=== PATIENT | female | born 1965 | race African-American/Black ===

== ENCOUNTER 2017-06-22 00:51 | Emergency (ER) | payer OTHER ==
[~2017-06-22] VITALS: Ht 160 cm; Wt 84.1 kg
[~2017-06-22 00:51] MED LIST: LISI10TA PO; LORA10TA7 PO; NAPR-58 PO; PRED10TA3 PO; PRED5 PO
[2017-06-22] MEDS ORDERED: CLINDAMYCIN PHOS 150 MG/ML 4 ML VIAL IM ONE (04:30)
[2017-06-22 04:35] VITALS: BP 131/68
== END 2017-06-22 04:57 | disposition home or self-care (01) ==
LOC: EMS 00:56
DX: L73.9 Follicular disorder, unspecified (principal); I10 Essential (primary) hypertension; Z88.6 Allergy status to analgesic agent
CPT/HCPCS: 96372; 99283; S0077

== ENCOUNTER 2018-04-24 05:31 | Emergency (ER) | payer SELFPAY ==
[~2018-04-24] VITALS: Ht 160 cm; Wt 86.4 kg
[~2018-04-24 05:31] MED LIST changes: -LORA10TA7 PO; -NAPR-58 PO; -PRED10TA3 PO
[2018-04-24] MEDS ORDERED: FERR-89 PO (05:40)
[2018-04-24] MEDS ORDERED: MULT1TAB70 PO (05:40)
[2018-04-24 06:17] VITALS: BP 132/89
[2018-04-24] MEDS ORDERED: TraMADol HCL 50 MG TABLET PO ONE (06:30)
== END 2018-04-24 09:47 | disposition home or self-care (01) ==
LOC: EMS 05:32
DX: S13.4XXA Sprain of ligaments of cervical spine, initial encounter (principal); I10 Essential (primary) hypertension; Z88.6 Allergy status to analgesic agent; V43.52XA Car driver injured in collision with other type car in traffic accident, initial encounter; Y93.89 Activity, other specified; Y92.89 Other specified places as the place of occurrence of the external cause; Y99.8 Other external cause status
CPT/HCPCS: 72040; 99284

== ENCOUNTER 2018-11-05 05:48 | Emergency (ER) | payer OTHER ==
[~2018-11-05] VITALS: Ht 160 cm; Wt 85.0 kg
[~2018-11-05 05:48] MED LIST changes: +FERR-89 PO; +MULT1TAB70 PO
[2018-11-05] MEDS ORDERED: CORT25 PO (06:03)
[2018-11-05] MEDS ORDERED: FLUORESCEIN SODIUM 1 MG STRIP ONE (06:22)
[2018-11-05] MEDS ORDERED: PROPARACAINE HCL 0.5% 15 ML OPHTHALMIC SOLUTION OD ONE (06:30)
[2018-11-05] MEDS ORDERED: ERYTHROMYCIN 0.5% 3.5 GM TUBE OPHTHALMIC OINTMENT OD ONE (06:45)
[2018-11-05 06:47] VITALS: BP 145/98
== END 2018-11-05 06:55 | disposition home or self-care (01) ==
LOC: EMS 05:49
DX: S05.01XA Injury of conjunctiva and corneal abrasion without foreign body, right eye, initial encounter (principal); I10 Essential (primary) hypertension; M19.90 Unspecified osteoarthritis, unspecified site; F12.90 Cannabis use, unspecified, uncomplicated; Z90.710 Acquired absence of both cervix and uterus; Z88.6 Allergy status to analgesic agent; X58.XXXA Exposure to other specified factors, initial encounter; Y93.89 Activity, other specified; Y92.89 Other specified places as the place of occurrence of the external cause; Y99.8 Other external cause status

== ENCOUNTER 2022-11-11 08:07 | Emergency (ER) | payer OTHER ==
[~2022-11-11] VITALS: Ht 160 cm; Wt 71.8 kg
[~2022-11-11 08:07] MED LIST changes: +DOCU-385 PO; -FERR-89 PO; +FERR325T27 PO; +HYDR200T4 PO; +LISI-892 PO; -LISI10TA PO; +MULT-660 PO; -MULT1TAB70 PO; +PANT-31 PO; +PRED-549 PO; -PRED5 PO
[2022-11-11] MEDS ORDERED: OMEP20CA12 PO (08:27)
[2022-11-11] MEDS: OxyCODONE HCL/ACETAMINOPHEN 5-325 MG TABLET PO ONE (10:01)
[2022-11-11] MEDS: METHOCARBAMOL 500 MG TABLET PO ONE (10:01)
[2022-11-11] MEDS: ONDANSETRON HCL 4 MG TABLET PO ONE (11:13)
[2022-11-11] MEDS ORDERED: ONDANSETRON HCL 4 MG TABLET PO ONE (11:15)
[2022-11-11 13:02] VITALS: BP 124/76
[2022-11-11] MEDS ORDERED: PERCT PO (13:45)
[2022-11-11] MEDS ORDERED: METH-659 PO (13:46)
== END 2022-11-11 14:00 | disposition home or self-care (01) ==
LOC: EMS 08:16
DX: Z04.3 Encounter for examination and observation following other accident (principal); M51.36 Other intervertebral disc degeneration, lumbar region; F12.90 Cannabis use, unspecified, uncomplicated; D25.9 Leiomyoma of uterus, unspecified; M19.90 Unspecified osteoarthritis, unspecified site; I10 Essential (primary) hypertension; Z88.6 Allergy status to analgesic agent; Z87.442 Personal history of urinary calculi
CPT/HCPCS: 99285; 72131; Q0162

== ENCOUNTER 2023-03-15 09:07 | Emergency (ER) | payer OTHER ==
[~2023-03-15] VITALS: Ht 160 cm; Wt 72.7 kg
[~2023-03-15 09:07] MED LIST changes: -DOCU-385 PO; +METH-659 PO; +OMEP20CA12 PO; -PANT-31 PO; -PRED-549 PO
[2023-03-15] MEDS ORDERED: FLUORESCEIN SODIUM 1 MG STRIP OD ONE (12:30)
[2023-03-15] MEDS ORDERED: CLINDAMYCIN HCL 150 MG CAPSULE PO ONE (12:30)
[2023-03-15] MEDS ORDERED: POLYMYXIN B/TRIMETHOPRIM 10 ML OPHTHALMIC SOLUTION OD ONE (12:30)
[2023-03-15] MEDS ORDERED: PROPARACAINE HCL 0.5% 15 ML OPHTHALMIC SOLUTION OD ONE (12:30)
[2023-03-15] MEDS ORDERED: POLYOS OD (12:51)
[2023-03-15] MEDS ORDERED: CLIN-26 PO (12:51)
[2023-03-15 13:04] VITALS: BP 115/78
== END 2023-03-15 13:10 | disposition home or self-care (01) ==
LOC: EMS 09:09
DX: L03.213 Periorbital cellulitis (principal); H10.9 Unspecified conjunctivitis; M19.90 Unspecified osteoarthritis, unspecified site; I10 Essential (primary) hypertension; F12.90 Cannabis use, unspecified, uncomplicated; Z90.710 Acquired absence of both cervix and uterus; Z88.6 Allergy status to analgesic agent; Z79.899 Other long term (current) drug therapy
CPT/HCPCS: 99284; J9035; Z7502; Z7610

== ENCOUNTER 2023-05-14 10:35 | Emergency (ER) | payer OTHER ==
[~2023-05-14] VITALS: Ht 160 cm; Wt 68.2 kg
[~2023-05-14 10:35] MED LIST changes: +CLIN-26 PO; -HYDR200T4 PO; -MULT-660 PO; -OMEP20CA12 PO; +POLYOS OD
[2023-05-14] MEDS ORDERED: CALC-462 PO (10:48)
[2023-05-14] MEDS ORDERED: GABA600T10 PO (10:48)
[2023-05-14] MEDS ORDERED: OMEP20CA12 PO (10:48)
[2023-05-14] MEDS ORDERED: DULO-114 PO (10:48)
[2023-05-14] MEDS ORDERED: HYDR200T76 PO (10:48)
[2023-05-14] MEDS ORDERED: TIZA-194 PO (10:48)
[2023-05-14] MEDS ORDERED: METH2.5T6 PO (10:48)
[2023-05-14] MEDS ORDERED: FOLI0.8C PO (10:48)
[2023-05-14] MEDS ORDERED: CYAN-11 IM (10:48)
[2023-05-14] MEDS ORDERED: CHOL200059 PO (10:48)
[2023-05-14 10:49] VITALS: TEMP 98.3
[2023-05-14] MEDS ORDERED: HYDROCODONE/ACETAMINOPHEN 5-325 MG TABLET PO ONE (12:15)
[2023-05-14 13:24] VITALS: BP 135/80; PULSE 80; RESP 16
== END 2023-05-14 13:44 | disposition home or self-care (01) ==
LOC: EMS 10:36
DX: S80.02XA Contusion of left knee, initial encounter (principal); M25.562 Pain in left knee; I10 Essential (primary) hypertension; D25.9 Leiomyoma of uterus, unspecified; F12.90 Cannabis use, unspecified, uncomplicated; Z87.442 Personal history of urinary calculi; Z90.710 Acquired absence of both cervix and uterus; Z88.8 Allergy status to other drugs, medicaments and biological substances; W19.XXXA Unspecified fall, initial encounter; Y93.89 Activity, other specified; Y92.89 Other specified places as the place of occurrence of the external cause; Y99.8 Other external cause status
CPT/HCPCS: 99283

== ENCOUNTER 2024-05-21 08:32 | Emergency (ER) | payer OTHER ==
[~2024-05-21] VITALS: Ht 160 cm; Wt 65.0 kg
[~2024-05-21 08:32] MED LIST changes: +CALC-462 PO; +CHOL200059 PO; -CLIN-26 PO; +CYAN-11 IM; +DULO-114 PO; +FOLI0.8C PO; +GABA600T10 PO; +HYDR200T76 PO; +METH2.5T6 PO; +OMEP20CA12 PO; -POLYOS OD; +TIZA-194 PO
[2024-05-21] MEDS: ACETAMINOPHEN 325 MG TABLET PO ONE (10:55)
[2024-05-21 11:01] VITALS: TEMP 97.9
[2024-05-21 11:06] VITALS: BP 120/76; PULSE 72; RESP 14
== END 2024-05-21 12:26 | disposition home or self-care (01) ==
LOC: EMS 08:32
DX: S62.635A Displaced fracture of distal phalanx of left ring finger, initial encounter for closed fracture (principal); I10 Essential (primary) hypertension; F12.90 Cannabis use, unspecified, uncomplicated; Z88.6 Allergy status to analgesic agent; Y04.0XXA Assault by unarmed brawl or fight, initial encounter; Y93.89 Activity, other specified; Y92.89 Other specified places as the place of occurrence of the external cause; Y99.8 Other external cause status
CPT/HCPCS: 99283